=== PATIENT | male | born 1960 | race Caucasian/White ===

== ENCOUNTER 2020-04-25 19:40 | Emergency (ER) | payer MEDICAID ==
[~2020-04-25] VITALS: Ht 175.3 cm; Wt 72.6 kg
[2020-04-25] MEDS ORDERED: PANTOPRAZOLE SODIUM IV 80 MG in IV DEXTROSE 5% 100 ML IV ONE (20:00)
[2020-04-25] MEDS ORDERED: IV NORMAL SALINE 1000 ML BAG IV ONE (20:00)
[2020-04-25] MEDS ORDERED: PANTOPRAZOLE SODIUM 40 MG VIAL ONE (20:14)
[2020-04-25 20:21] LABS: BASOPHILS # (AUTO) 0.1 K/uL (0.0-8.0); BASOPHILS % (AUTO) 0.7 % (0.0-2.0); EOSINOPHILS # (AUTO) 0.2 K/uL (0.0-0.7); EOSINOPHILS % (AUTO) 1.7 % (0.0-7.0); HEMATOCRIT 38.9 % (36.7-47.1); LYMPHOCYTES # (AUTO) 3.9 K/uL (20.0-40.0); LYMPHOCYTES % (AUTO) 29.8 % (20.5-51.5); MEAN CORPUSCULAR HEMOGLOBIN 29.1 uug (23.8-33.4); MEAN CORPUSCULAR HGB CONC 34 g/dL (32.5-36.3); MEAN CORPUSCULAR VOLUME 86.9 fL (73.0-96.2); MONOCYTES % (AUTO) 7.4 % (0.0-11.0); NEUTROPHILS # (AUTO) 7.8 K/uL (1.8-8.9); NEUTROPHILS % (AUTO) 60.4 % (38.5-71.5); PLATELET COUNT (AUTO) 190 K/uL (152-348); RED BLOOD CELL COUNT(AUTO) 4.48 MIL/uL (4.06-5.63)
[2020-04-25 20:26] LABS: CREATININE 1.4 mg/dL (0.6-1.3); POTASSIUM 3.7 mmol/L (3.5-5.1)
[2020-04-25 20:31] LABS: BILIRUBIN,DIRECT 0.1 mg/dL (0.0-0.2); BILIRUBIN,TOTAL 0.2 mg/dL (0.2-1.0); TOTAL PROTEIN, SERUM 7.4 g/dL (6.4-8.2)
--- NOTE | 2020-04-25 21:10 | NUR ---
IV removed. Catheter intact and site benign. Pressure and 4x4 gauze applied to site. No bleeding noted.
--- NOTE | 2020-04-25 21:14 | NUR ---
Patient discharged to home in stable condition. Written and verbal after care instructions given. Patient verbalizes understanding of instructions. Stressed follow up or return to ER for worsening s/s. Patient walking the [employer] with no distress noted.
[2020-04-25 21:16] VITALS: BP 118/67
== END 2020-04-25 21:18 | disposition home or self-care (01) ==
LOC: ER 19:43
DX: K62.5 Hemorrhage of anus and rectum (principal)
CPT/HCPCS: 36415; 71045; 80048; 80076; 83690; 85025; 85730; 86850; 86900; 86901; 96361; 96374; 99284; C9113; A4663; J7030